=== PATIENT | male | born 1940 | race Caucasian/White ===

== ENCOUNTER → 2023-12-15 | Outpatient (CLI) | payer MEDICARE ==
--- NOTE | 2023-12-15 11:13 | CT ---
EXAMINATION TYPE: CT abdomen pelvis wo con DATE OF EXAM: 12/15/2023 COMPARISON: None HISTORY: 83-year-old male R10.9, Z85.048 Generalized abdominal pain, hx colon ca CT DLP: 993.20 mGycm. Automated exposure control for dose reduction was used. TECHNIQUE: Contiguous axial scanning of the abdomen and pelvis without IV contrast. Coronal and sagit noreen reconstructions performed. FINDINGS: The heart is borderline in size with extensive coronary artery calcifications. Lung bases clear witho ut pleural effusion. There is a tiny hiatal hernia. Noncontrast appearance of the liver, adrenal glands, and atrophic pancreas show no gross abnormal. Numerous punctate calcified granulomas within the spleen. The kidneys show bilateral perinephric edema which could reflect chronic kidney disease or senescent change. No hydronephrosis or renal calculi seen. The gallbladder is mildly hydropic and 4.4 cm wide but without any surrounding inflammation. However, there is nodular soft tissue within the gallbladder suspected to represent noncalcified gallstones. Gall bladder ultrasound to further evaluate. A 1.6 cm nodular soft tissue density at the fundus of th e gallbladder possibly adherent stone. Mild to moderate atherosclerotic calcifications abdominal aorta without aneurysm. An IVC filter is pr esent. No dilated small bowel, free fluid, or free air. No mesenteric or retroperitoneal adenopathy. Patient is status post right hemicolectomy with ileocolonic anastomosis in the transverse colon. Mode rate stool burden. Oral contrast progressed nearly to the splenic flexure of the colon. Additional st aple line at the mid sigmoid colon from prior resection and re-anastomosis. Bladder urine distended. There is a 2.9 cm diverticulum from the right bladder dome. Prostate gland p rominently enlarged measuring up to 6.7 cm wide. No abnormal fluid collection in the pelvis or pelvic lymphadenopathy. Partially visualized large left scrotal hydrocele and small on the right. Bones: Baastrup's disease. Moderately advanced spondylotic change within the lumbar spine. Nearly gra de 2 anterolisthesis L5-S1. IMPRESSION: 1. Gallbladder mildly hydropic but without any surrounding inflammation. There is nodular soft tissu e within probably representing noncalcified gallstones. Gallbladder ultrasound can further assess. A nodular area the fundus of the gallbladder measures 1.6 cm and may represent an adherent stone. 2. Partially visualized large left scrotal hydrocele. Clinically correlate. 3. Previous partial right hemicolectomy and additional resection and reanastomosis of the mid sigmoi d colon. 4. Prostatomegaly 6.7 cm wide. Correlate with PSA values and patient's symptoms. A 2.9 cm diverticul um from the right bladder dome suggests changes of chronic bladder outlet obstruction. 5. Tiny hiatal hernia. [facility], , 12/15/2023 11:11 AM
== END | disposition home or self-care (01) ==
LOC: RADCTMAIN 08:32
PROVIDERS: ATTEND Family Medicine
DX: K44.9 Diaphragmatic hernia without obstruction or gangrene (principal); N43.3 Hydrocele, unspecified; N40.0 Benign prostatic hyperplasia without lower urinary tract symptoms; R10.9 Unspecified abdominal pain; Z85.048 Personal history of other malignant neoplasm of rectum, rectosigmoid junction, and anus
CPT/HCPCS: 74176